=== PATIENT | female | born 1985 | race Two or more races ===

== ENCOUNTER 2016-05-01 09:30 | Inpatient (IN) | payer MEDICAID ==
[2016-05-01] MEDS ORDERED: SODIUM CHLORIDE 0.9% FLUSH 20 ML ONE (10:01)
[2016-05-01] MEDS ORDERED: OXYTOCIN 10 UNITS/ML VIAL ONE (10:01)
[2016-05-01] MEDS ORDERED: LIDOCAINE Viscous 2% 15 ML UDCUP ONE (10:01)
[2016-05-01] MEDS ORDERED: MINERAL OIL 25 ML BOT ONE (10:01)
[2016-05-01] MEDS ORDERED: IV START KIT ONE (10:01)
[2016-05-01] MEDS ORDERED: LIDOCAINE 1% (PRES FREE) 30 ML VIAL ONE (10:01)
[2016-05-01] MEDS ORDERED: OXYTOCIN IN LR 500 ML IV ONE (10:02)
[2016-05-01] MEDS ORDERED: PUMP TUBING ONE (10:02)
[2016-05-01] MEDS ORDERED: OXYTOCIN IN LR 334 ML IV ONE (10:09)
[2016-05-01] MEDS ORDERED: LACTATED RINGERS 1,000 ML IV PRN (10:09)
[2016-05-01 10:42] LABS: HEMATOCRIT 40.7 % (37.0-47.0); HEMOGLOBIN 13.7 gm/l (12.0-16.0); MEAN CELL VOLUME 85.9 fl (81.0-99.0); MEAN CORPUSCULAR HEMOGLOBIN 28.9 pg (27.0-31.0); MEAN CORPUSCULAR HGB CONC 33.7 g/dl (33.0-37.0); RED CELL DISTRIBUTION WIDTH 14.6 % (11.5-14.5)
--- NOTE | 2016-05-01 11:04 | PCMAN ---
OB Admission Note - History : 3 Term: 2 Admit Cervical Dilation:: 6 Admit Cervical Effacement (%):: 100 Admit Station:: -2 Admit Presentaton:: Vertex Membrane Status: Intact Labor Onset (Date): 05/01/16 Labor Onset (Time): 06:00 Contractions: Yes Contraction Frequency:: q 3-4 min Heart Rate:: 145 Status:: reassuring EFW:: 7 Lbs Summary of Course:: Was noted to have a short cervix at 20 wk scan (2.6cm). GDM, diet-controlled Has hx of precipitious deliveries GBS negative - Labs Blood Type: O (+) positive Hct/Hgb:: 12.7 Rubella Status: Immune GBS Status: Negative Abnormal Labs: Other Other Labs:: 3 hr GTT with 3/4 abnl results - Review of Systems 12 point ROS negative except for contraction pain - Physical Exam General: Afebrile Lungs: Clear to Auscultation Bilaterally Cardiovascular: Regular Rate and Rhythm Abdomen: Normal Bowel Sounds, Other (gravid, nontender) Skin: Normal Color - Problems (1) Active labor at term Status: Acute Code: [id number] Assessment/Plan: 30 yo @ 39 4/7wks with GDM diet-controlled comes in in active labor, FWB reassuring, GBS negative. -will AROM and continue with expectant management (2) Gestational diabetes mellitus (GDM) affecting , antepartum Status: Acute Code: O24.919 Assessment/Plan: Well controlled during . Sugar protocol for .
[2016-05-01 11:21] VITALS: BMI 30.7
[2016-05-01] MEDS ORDERED: DOCUSATE SODIUM 100 MG CAPSULE PO PRN (11:55)
[2016-05-01] MEDS ORDERED: MAGNESIUM HYDROXIDE 30 ML UDCUP PO PRN (11:55)
[2016-05-01] MEDS ORDERED: SENNOSIDES 8.6 MG TABLET PO PRN (11:55)
[2016-05-01] MEDS ORDERED: BENZOCAINE/MENTHOL 60 APPLIC/BOT TP PRN (11:55)
[2016-05-01] MEDS ORDERED: IBUPROFEN 800 MG TABLET PO PRN (11:55)
[2016-05-01] MEDS ORDERED: LANOLIN 50 APPLIC/7G TUBE TP PRN (11:55)
[2016-05-01] MEDS ORDERED: HYDROCODONE/ACETAMINOPHEN 5/325MG TABLET PO PRN (11:55)
[2016-05-01] MEDS ORDERED: LIDOCAINE 1% 2 ML VIAL SUB-Q ONE (11:59)
--- NOTE | 2016-05-01 12:00 | PCMDEL ---
Delivery Note - Labor 1st stage (hr/min):: 5hrs 24min 2nd stage (hr/min):: 10 min 3rd stage (hr/min):: 3 min Total (hr/min):: 5hrs 37 min Pushed (hr/min):: 10 min - Delivery Delivery (Date): 05/01/16 Delivery (Time): 11:34 Infant Gender: Female Presentation: Cephalic Position: OA Umbilical Cord: 3 Vessel Delayed Cord Clamping:: < 1-2 min 1 Minute Total: 9 5 Minute Total: 9 Placenta:: complete EBL:: 350ml Perineum:: 2nd degree perineal tear Suture:: 3.0 Vicryl Anesthesia/Meds:: Pitocin 30 units Length ROM:: 1hr 41min Comments:: Vigorous girl delivered over 2nd degree perineal tear onto mother's chest. Cord clamped and cut >1min. Placenta delivered complete with 3 vessel cord. 2nd degree laceration was repaired in the usual fashion. EBL 350ml.
[2016-05-01] MEDS ORDERED: SODIUM CHLORIDE 0.9% FLUSH 10 ML ONE (12:50)
[2016-05-02 06:49] LABS: HEMATOCRIT 37.9 % (37.0-47.0); HEMOGLOBIN 12.8 gm/l (12.0-16.0)
[2016-05-02 10:57] VITALS: BP 108/77
--- NOTE | 2016-05-02 11:51 | PDOC44 ---
- Subjective Day: 1 Patient doing well. Pain controlled with meds. Denies dizzines. Tolerating PO. Lochia minimal. BF well. Desires early d/c today. Reports Pain Tolerable, Reports , Reports Lochia Light, Reports Tolerating Regular Diet, Denies Nausea, Denies Vomiting - Objective Temp Pulse Resp BP Pulse Ox 97.8 F 82 16 108/77 05/02/16 10:30 05/02/16 10:30 05/02/16 10:30 05/02/16 10:30 Lab Results 05/02/16 06:30 Hgb 12.8 Hct 37.9 Current Medications Generic Name Dose Route Start Last Admin Trade Name Freq PRN Reason Stop Dose Admin Acetaminophen/Hydrocodone Bitart 1 - 2 tab 05/01/16 11:55 [place] 5/325 PO Q4H PRN Pain (Moderate) Benzocaine/Menthol 1 applic 05/01/16 11:55 Dermoplast TP PRN PRN Patient Comfort Docusate Sodium 100 mg 05/01/16 11:55 Colace PO DAILY PRN Comfort Emollient Ointment 1 applic 05/01/16 11:55 [id number] TP PRN PRN sore nipples Ibuprofen 800 mg 05/01/16 11:55 Motrin PO Q6H PRN Pain (Mild) Magnesium Hydroxide 30 ml 05/01/16 11:55 Milk Of Magnesia PO BEDTIME PRN Constipation Senna 17.2 mg 05/01/16 11:55 Senokot PO BEDTIME PRN Comfort - Physical Exam General: Afebrile, No Acute Distress Psych/Mental Status: Mood/Affect Appropriate, Bonding Well Neurological: Alert, Normal Speech Lungs: Clear to Auscultation Bilaterally, Normal Air Movement Cardiovascular: Regular Rate and Rhythm, Normal S1, Normal S2 Breast: Nipples Intact Fundus: Firm, Midline Extremities: Full ROM, No Edema, No Tenderness Skin: Normal Color, Warm, Dry, Intact, No Rash - Problems:Assessment/Plan (1) (normal spontaneous vaginal delivery) Status: Acute Assessment/Plan: PPD#1 s/p GDM well controlled in Desires early d/c today Stable for d/c Will follow up in 6 weeks with PCP Disposition: Stable, Anticipate DC to Home
== END 2016-05-02 13:25 | disposition home or self-care (01) | DRG 775 ==
LOC: FBCOUT 09:30 → FBC 09:30 → FBCOUT 09:54 → FBC 09:55
PROVIDERS: ADMIT Family Medicine; ATTEND Family Medicine
PROC: 10E0XZZ Delivery of Products of Conception, External Approach (ICD-10-PCS; principal; 2016-05-01)
PROC: 0KQM0ZZ Repair Perineum Muscle, Open Approach (ICD-10-PCS; 2016-05-01)
DX: O24.420 Gestational diabetes mellitus in childbirth, diet controlled (principal); O70.1 Second degree perineal laceration during delivery; Z3A.39 39 weeks gestation of pregnancy; Z37.0 Single live birth